=== PATIENT | female | born 1965 | race African-American/Black ===

== ENCOUNTER 2016-06-18 18:55 | Emergency (ER) | payer MEDICARE, MEDICAID ==
--- NOTE | 2016-06-18 19:02 | ER Document Report ---
ED Medical Screen (RME) - General Stated Complaint: TOE PAIN Mode of Arrival: Ambulatory Information source: Patient Notes: Patient stubbed her toe yesterday hitting her foot against a shelf in her closet. Patient complains of right fourth toe pain. I have greeted and performed a rapid initial assessment of this patient. A comprehensive ED assessment and evaluation of the patient, analysis of test results and completion of the medical decision making process will be conducted by additional ED providers. TRAVEL OUTSIDE OF THE [place] IN LAST 30 DAYS: No - Related Data Allergies/Adverse Reactions: Sulfa (Sulfonamide Antibiotics) Allergy (Verified 01/19/13 17:07) Hives Past Medical History - Past Medical History Cardiac Medical History: Reports: Hx Congestive Heart Failure, Hx Hypercholesterolemia, Hx Hypertension Pulmonary Medical History: Denies: Hx Tuberculosis Musculoskeltal Medical History: Reports Hx Arthritis Past Surgical History: Reports: Hx Bowel Surgery - gastric bypass, Hx Breast Surgery - breast augmentation, Hx Section - x 2, Hx Gastric Bypass Surgery - Immunizations Hx Diphtheria, Pertussis, Tetanus Vaccination: No Physical Exam - Extremities General lower extremity: Tender - Right fourth toe
[2016-06-18 19:03] VITALS: BP 133/71
== END 2016-06-18 21:24 | disposition left against medical advice (07) ==
LOC: ER 18:55
DX: M79.674 Pain in right toe(s) (principal); I50.9 Heart failure, unspecified; E78.00 Pure hypercholesterolemia, unspecified; I11.0 Hypertensive heart disease with heart failure; Z88.2 Allergy status to sulfonamides; Z98.84 Bariatric surgery status
CPT/HCPCS: 99281

== ENCOUNTER → 2017-06-04 | Outpatient (CLI) | payer MEDICARE, MEDICAID | LOC: OD 13:46 | PROVIDERS: ATTEND Nurse Practitioner Acute Care | DX: N39.0 Urinary tract infection, site not specified (principal) | CPT/HCPCS: 87086; 87088; 87186 ==

== ENCOUNTER 2018-11-05 07:53 | Emergency (ER) | payer MEDICAID, MEDICARE, OTHER ==
--- NOTE | 2018-11-05 09:45 | ER Document Report ---
HPI - HPI Time Seen by Provider: 11/05/18 08:27 Pain Level: 2 Notes: Patient is a 53-year-old female presented to the emergency department chief complaint of left lower extremity bruising. Patient has a painful bruise proximal to the knee on the anterior surface. Patient reports she first noticed this last night. She states there is a knot there as well. She denies any history of DVTs or PEs. She denies any recent travel, she is a non-smoker and she does not have any hormone replacement or oral contraceptive use. Patient wants to make sure she does not have a blood clot as she states her mother has had them in the past. Patient denies any shortness of breath or chest pain. - REPRODUCTIVE Reproductive: DENIES: : Past Medical History - General Information source: Patient - Social History Smoking Status: Never Smoker Frequency of alcohol use: None Drug Abuse: None Family History: Reviewed & Not Pertinent, Other - NO KNOWN H/O RHEUMATIC DIS.. denies: Arthritis - Past Medical History Cardiac Medical History: Reports: Hx Congestive Heart Failure, Hx Hypercholesterolemia, Hx Hypertension Pulmonary Medical History: Denies: Hx Tuberculosis Renal/ Medical History: Denies: Hx Peritoneal Dialysis Musculoskeletal Medical History: Reports Hx Arthritis Past Surgical History: Reports: Hx Bowel Surgery - gastric bypass, Hx Breast Surgery - breast augmentation, Hx Section - x 2, Hx Gastric Bypass Surgery - Immunizations Hx Diphtheria, Pertussis, Tetanus Vaccination: No Vertical Provider Document - CONSTITUTIONAL Notes: PHYSICAL EXAMINATION: GENERAL: Well-appearing, well-nourished and in no acute distress. HEAD: Atraumatic, normocephalic. EYES: Pupils equal round and reactive to light, extraocular movements intact, conjunctiva are normal. ENT: Nares patent, oropharynx clear without exudates. Moist mucous membranes. NECK: Normal range of motion, supple without lymphadenopathy LUNGS: Breath sounds clear to auscultation bilaterally and equal. No wheezes rales or rhonchi. HEART: Regular rate and rhythm without murmurs ABDOMEN: Soft, nontender, nondistended abdomen. No guarding, no rebound. No masses appreciated. Female : deferred Musculoskeletal: Slight swelling to the upper thigh area with mild bruising. Normal popliteal and dorsalis pedis pulse. No unilateral leg swelling. NEUROLOGICAL: Cranial nerves grossly intact. Normal speech, normal gait. Normal sensory, motor exams PSYCH: Normal mood, normal affect. SKIN: Warm, Dry, normal turgor, no rashes or lesions noted. - INFECTION CONTROL TRAVEL OUTSIDE OF THE [place] IN LAST 30 DAYS: No Course - Re-evaluation Re-evalutation: Venous Doppler ultrasound is negative for any DVT or SVT. Patient will be discharged home in stable condition with plans to follow-up with her primary care. - Vital Signs Vital signs: Temp Pulse Resp BP Pulse Ox 97.7 F 56 L 18 150/79 H 96 11/05/18 07:57 11/05/18 07:57 11/05/18 07:57 11/05/18 07:57 11/05/18 07:57 Discharge - Discharge Clinical Impression: Left leg pain Condition: Stable Disposition: HOME, SELF-CARE Additional Instructions: The venous Doppler ultrasound today was negative for any deep vein thrombosis. You may try taking some Tylenol or ibuprofen for the pain. If you continue to have pain and/or develop leg swelling please return in 10 days to either your primary care provider or the emergency department to have a repeat venous Doppler ultrasound study performed. Referrals: LOCAL,NO [NO LOCAL MD] - Follow up as needed
[2018-11-05 09:56] VITALS: BP 140/72
--- NOTE | 2018-11-05 10:08 | RADIOLOGY REPORT (SQ) ---
EXAM DESCRIPTION: VENOUS UNILATERAL LOWER COMPLETED DATE/TIME: 11/05/2018 9:42 am REASON FOR STUDY: LLE COMPARISON: None. TECHNIQUE: Dynamic and static arrington scale and color images acquired of the left leg venous system. Se lected spectral images acquired with additional compression and augmentation maneuvers. The contralat eral common femoral vein and saphenofemoral junction were also imaged. Images stored on PACS. LIMITATIONS: None. FINDINGS: LEFT COMMON FEMORAL: Normal phasicity, compression and augmentation. No visualized echogenic material on g ray scale. No defects on color images. FEMORAL: Normal compression and augmentation. No visualized echogenic material on arrington scale. No defe cts on color images. POPLITEAL: Normal compression, augmentation. No visualized echogenic material on arrington scale. No defec ts on color images. CALF VESSELS: Normal compression, augmentation. No visualized echogenic material on arrington scale. No de fects on color images. GSV and SSV: Normal compression, augmentation. No visualized echogenic material on arrington scale. No def ects on color images. ANY DEEP VENOUS INSUFFICIENCY: Not evaluated. ANY EVIDENCE OF POPLITEAL CYST: No. OTHER: No other significant finding. RIGHT COMMON FEMORAL VEIN AND SAPHENOFEMORAL JUNCTION: Normal phasicity, compression and augmentation. No visualized echogenic material on arrington scale. No de fects on color images. IMPRESSION: NO EVIDENCE OF DVT OR SVT IN THE LEFT LEG. TECHNICAL DOCUMENTATION: JOB ID: [id number] [employer]- All Rights Reserved Reading location - IP/workstation name: [email or web address]
== END 2018-11-05 09:56 | disposition home or self-care (01) ==
LOC: ER 07:53
DX: S70.12XA Contusion of left thigh, initial encounter (principal); M79.605 Pain in left leg; X58.XXXA Exposure to other specified factors, initial encounter; I10 Essential (primary) hypertension; Z98.84 Bariatric surgery status
CPT/HCPCS: 93971; 99283